=== PATIENT | female | born 1995 | race Caucasian/White ===

== ENCOUNTER 2019-02-12 11:34 | Outpatient (CLI) | payer OTHER ==
--- NOTE | 2019-02-12 12:46 | ULT ---
Obstetric sonogram HISTORY: Early . Evaluate for dates. FINDINGS: Urinary bladder is unremarkable. Uterus measures up to 10.7 cm and contains a gestational s ac. Heart motion at 141 bpm. Small yolk sac. Measurements correlate with 17 weeks 6 days gestational age giving an estimated date of delivery of 11/26/2018. Dominant cyst of the left ovary measures up to 3.2 cm. Good color and spectral Doppler flow. Right ov janett has normal appearance. IMPRESSION: Single intrauterine gestation. Estimated gestational age 7 weeks 6 days. Left ovarian cyst 3.2 cm.
== END 2019-02-12 11:35 | disposition home or self-care (01) ==
LOC: SCSULT 11:34
PROVIDERS: ATTEND Nurse Practitioner
DX: O09.91 Supervision of high risk pregnancy, unspecified, first trimester (principal); O99.89 Other specified diseases and conditions complicating pregnancy, childbirth and the puerperium; N83.202 Unspecified ovarian cyst, left side; Z3A.01 Less than 8 weeks gestation of pregnancy
CPT/HCPCS: 76856